=== PATIENT | female | born 1955 | race African-American/Black ===

== ENCOUNTER 2019-12-26 23:10 | Inpatient (IN) | payer BC, MEDICARE ==
[~2019-12-26] VITALS: Ht 175.3 cm; Wt 110.7 kg
[2019-12-26] MEDS ORDERED: METO-411 PO (23:11)
[2019-12-26] MEDS ORDERED: BENA1TAB18 PO (23:12)
[2019-12-26] MEDS ORDERED: AMLO10TA80 PO (23:12)
[2019-12-26] MEDS ORDERED: ATOR10TA69 PO (23:13)
[2019-12-26] MEDS ORDERED: METF-414 PO (23:14)
[2019-12-26] MEDS ORDERED: INSU100I13 SQ (23:16)
[2019-12-26] MEDS ORDERED: SODIUM CHLORIDE 0.9% 1,000 ML IV ONE (23:53)
[2019-12-27 00:50] LABS: HEMATOCRIT. 42.6 % (36.0-48.0); HEMOGLOBIN. 14.2 g/dL (12.0-16.0); MEAN CORPUSCULAR HEMOGLOBIN 30.7 pg (28.0-32.0); MEAN CORPUSCULAR VOLUME 92.4 fL (81.0-99.0); MEAN PLATELET VOLUME 9.8 fl (7.4-10.4); PLATELET 260 x1000/uL (130-400); RED BLOOD CELL COUNT 4.61 mill/uL (4.2-5.4); RED CELL DISTRIBUTION WIDTH 13.4 % (11.6-14.6)
[2019-12-27 00:57] LABS: CHLORIDE 91 mEq/L (98-107)
[2019-12-27] MEDS ORDERED: INSULIN REGULAR (HUMULIN R) 300UNITS/3ML SUBCUT NR (01:30)
[2019-12-27 01:58] LABS: PLATELET ESTIMATE NORMAL
[2019-12-27] MEDS ORDERED: AZITHROMYCIN 500 MG in DEXT 5% WATER 250 ML IV NR (02:00)
[2019-12-27] MEDS ORDERED: CEFTRIAXONE 1 G PREMIX 50 ML IV NR (03:00)
[2019-12-27 03:50] VITALS: BP 123/70
[2019-12-27 04:00] VITALS: BP 123/70
[2019-12-27] MEDS ORDERED: DEXTROSE 50% WATER 50ML SYRINGE IV PRN (05:45)
[2019-12-27] MEDS: BLOOD SUGAR DIAGNOSTIC STRIP TEST SCH ×4 (06:48→21:00)
[2019-12-27] MEDS ORDERED: INSULIN LISPRO 100 UNITS/ML SUBCUT ONE (07:00)
[2019-12-27] MEDS: INSULIN LISPRO 100 UNITS/ML SUBCUT SCH ×6 (07:15→23:25)
[2019-12-27] MEDS ORDERED: METFORMIN HCL 500MG TABLET PO SCH (07:15)
[2019-12-27] MEDS ORDERED: METOPROLOL TARTRATE 50MG TABLET PO SCH ×2 (09:00→21:00)
[2019-12-27] MEDS ORDERED: AMLODIPINE 10MG TABLET PO SCH (09:00)
[2019-12-27] MEDS: BENAZEPRIL 10MG TABLET PO SCH ×2 (09:56→21:00)
[2019-12-27] MEDS: INSULIN GLARGINE UD 100 UNITS/ML SYR SUBCUT SCH ×2 (09:58→23:27)
[2019-12-27] MEDS ORDERED: CEFTRIAXONE 1 G PREMIX 50 ML IV SCH (10:00)
[2019-12-27 12:55] LABS: HEMATOCRIT. 39.1 % (36.0-48.0); MEAN CORPUSCULAR HEMOGLOBIN 30.4 pg (28.0-32.0); MEAN CORPUSCULAR VOLUME 91.6 fL (81.0-99.0); PLATELET 267 x1000/uL (130-400); RED BLOOD CELL COUNT 4.27 mill/uL (4.2-5.4); RED CELL DISTRIBUTION WIDTH 12.9 % (11.6-14.6)
[2019-12-27 13:02] LABS: CHLORIDE 93 mEq/L (98-107)
[2019-12-27] MEDS: ASPIRIN 81MG TABLET PO SCH (13:32)
[2019-12-27] MEDS: SODIUM CHLORIDE 0.9% 1,000 ML IV SCH (14:00)
[2019-12-27 14:39] LABS: PLATELET ESTIMATE NORMAL
[2019-12-27] MEDS ORDERED: VANCOMYCIN 2,000 MG in DEXT 5% WATER 500 ML IV NR (16:00)
[2019-12-27] MEDS: PIPERACILLIN/TAZOBACTAM 3.375 G in DEXT 5% WATER 100 ML IV SCH ×2 (18:07→22:54)
[2019-12-27] MEDS: METFORMIN HCL 500MG TABLET PO SCH (18:21)
[2019-12-27] MEDS: LINEZOLID 600 MG PREMIX 300 ML IV SCH (18:22)
[2019-12-27] MEDS: ENOXAPARIN 30MG/0.3ML SYR SUBCUT SCH (18:22)
[2019-12-27 20:00] VITALS: BP 92/60
[2019-12-27] MEDS ORDERED: CEFTRIAXONE 1,000 MG in DEXTROSE 5% WATER 50 ML IV SCH (21:00)
[2019-12-27] MEDS ORDERED: INSULIN GLARGINE UD 100 UNITS/ML SYR SUBCUT SCH (22:00)
[2019-12-27] MEDS: ATORVASTATIN CALCIUM 10MG TABLET PO SCH (22:20)
[2019-12-28] VITALS (42 sets, daily range): BP systolic 76–144; BP diastolic 35–122
[2019-12-28] MEDS: PIPERACILLIN/TAZOBACTAM 3.375 G in DEXT 5% WATER 100 ML IV SCH ×4 (04:37→20:45)
[2019-12-28] MEDS: SODIUM CHLORIDE 0.9% 1,000 ML IV SCH ×2 (04:37→13:36)
[2019-12-28] MEDS: LINEZOLID 600 MG PREMIX 300 ML IV SCH (06:11)
[2019-12-28] MEDS: ENOXAPARIN 30MG/0.3ML SYR SUBCUT SCH (06:12)
[2019-12-28] MEDS: INSULIN LISPRO 100 UNITS/ML SUBCUT SCH ×7 (06:34→20:47)
[2019-12-28] MEDS: METFORMIN HCL 500MG TABLET PO SCH (06:39)
[2019-12-28] MEDS: BLOOD SUGAR DIAGNOSTIC STRIP TEST SCH ×4 (06:39→20:36)
[2019-12-28] MEDS ORDERED: POTASSIUM CHLORIDE 20MEQ TABLET SR PO NR (08:15)
[2019-12-28 08:28] LABS: HEMATOCRIT. 41.6 % (36.0-48.0); HEMOGLOBIN. 13.6 g/dL (12.0-16.0); MEAN CORPUSCULAR HEMOGLOBIN 29.8 pg (28.0-32.0); MEAN CORPUSCULAR VOLUME 91.1 fL (81.0-99.0); MEAN PLATELET VOLUME 10.3 fl (7.4-10.4); PLATELET 259 x1000/uL (130-400); RED BLOOD CELL COUNT 4.56 mill/uL (4.2-5.4); RED CELL DISTRIBUTION WIDTH 12.9 % (11.6-14.6)
[2019-12-28 08:41] LABS: PHOSPHORUS 2.8 mg/dL (2.5-4.9)
[2019-12-28] MEDS ORDERED: SODIUM CHLORIDE 0.9% 1,000 ML IV ONE (09:00)
[2019-12-28] MEDS: MIDODRINE HCL 5MG TABLET PO SCH ×3 (09:19→18:20)
[2019-12-28] MEDS: ASPIRIN 81MG TABLET PO SCH (09:21)
[2019-12-28] MEDS ORDERED: MAGNESIUM 2 G PREMIX 50 ML IV SCH (10:00)
[2019-12-28 10:44] LABS: BG BASE EXCESS -3.3 mmol/L (-2.0-2.0); BG CARBOXYHEMOGLOBIN 0.8 % (0.5-1.5); BG DEOXYHEMOGLOBIN 1.7 % (0.0-5.0); BG FRACTION INSPIRED OXYGEN 21; BG HCO3 ACT 18.7 mmol/L (22.0-26.0); BG METHEMOGLOBIN 0.1 % (0.0-1.5); BG OXYGEN SATURATION 98.3 % (92.0-98.5); BG OXYHEMOGLOBIN 97.4 % (94.0-97.0); BG PCO2 26.1 mmHg (35.0-45.0); BG PH 7.472 (7.350-7.450); BG PO2 104.3 mmHg (75.0-100.0); BG SAMPLE SITE RIGHT RADIAL; BG TOTAL HEMOGLOBIN 14.2 g/dL (12.0-18.0); BG VENT MODE ROOM AIR
[2019-12-28] MEDS: INSULIN GLARGINE UD 100 UNITS/ML SYR SUBCUT SCH ×2 (10:47→21:05)
[2019-12-28] MEDS ORDERED: PHENYLEPHRINE 10 MG in DEXT 5% WATER 249 ML IV PRN (11:30)
[2019-12-28 12:08] LABS: PLATELET ESTIMATE NORMAL
[2019-12-28] MEDS ORDERED: PHENYLEPHRINE IV PRN (14:24)
[2019-12-28] MEDS ORDERED: WATER IV PRN (14:24)
[2019-12-28] MEDS ORDERED: DEXT 5% IV PRN (14:24)
[2019-12-28] MEDS ORDERED: PHENYLEPHRINE 20 MG in DEXTROSE 5% WATER 250 ML IV PRN (14:30)
[2019-12-28] MEDS ORDERED: VANCOMYCIN 1250MG in DEXTROSE 5% WATER 250ML IV SCH (16:00)
[2019-12-28] MEDS: HYDROCODONE/ACETAMINOPHEN 5/325MG TABLET PO PRN (18:20)
[2019-12-28 19:16] LABS: CLARITY URINE TURBID (CLEAR); COLOR URINE DARK YELLOW (YELLOW); KETONES URINE TRACE (NEGATIVE); LEUKOCYTE ESTERASE URINE 3+ (NEGATIVE); NITRITE URINE NEGATIVE (NEGATIVE); OCCULT BLOOD URINE 2+ (NEGATIVE); PROTEIN URINE 2+ (NEGATIVE); SPECIFIC GRAVITY URINE 1.027 (1.005-1.030)
[2019-12-28 19:23] LABS: *AMPHETAMINES SCREEN URINE NEGATIVE (NEGATIVE); *BARBITURATES SCREEN URINE NEGATIVE (NEGATIVE); *BENZODIAZEPINES SCREEN URINE NEGATIVE (NEGATIVE); *COCAINE SCREEN URINE NEGATIVE (NEGATIVE)
[2019-12-28 19:24] LABS: CANNABINOID URINE SCREEN NEGATIVE (NEGATIVE); METHADONE URINE SCREEN NEGATIVE (NEGATIVE); OPIATES URINE SCREEN NEGATIVE (NEGATIVE); PHENCYCLIDINE URINE SCREEN NEGATIVE (NEGATIVE)
[2019-12-28 19:45] LABS: SODIUM URINE RANDOM 43 mEq/L
[2019-12-28] MEDS ORDERED: MORPHINE SULFATE 2 MG/ML CPJ (NOT FOR IM USE) IV PRN (20:15)
[2019-12-28] MEDS: ATORVASTATIN CALCIUM 10MG TABLET PO SCH (20:46)
[2019-12-28] MEDS: CEFTRIAXONE 1,000 MG in DEXTROSE 5% WATER 50 ML IV SCH (22:54)
[2019-12-29] VITALS (61 sets, daily range): BP systolic 82–150; BP diastolic 28–86
[2019-12-29] MEDS: SODIUM CHLORIDE 0.9% 1,000 ML IV SCH ×4 (00:45→22:46)
[2019-12-29] MEDS: ONDANSETRON HCL 4MG/2ML INJ IV PRN ×2 (02:58→18:42)
[2019-12-29 05:29] LABS: BASOPHILS % 0.3 % (0.0-2.0); HEMATOCRIT. 39.3 % (36.0-48.0); LYMPHOCYTES % 7.4 % (20.0-50.0); MEAN CORPUSCULAR HEMOGLOBIN 30.1 pg (28.0-32.0); MEAN CORPUSCULAR VOLUME 90.8 fL (81.0-99.0); MEAN PLATELET VOLUME 9.8 fl (7.4-10.4); MONOCYTES % 7.3 % (2.0-8.0); PLATELET 295 x1000/uL (130-400); RED BLOOD CELL COUNT 4.33 mill/uL (4.2-5.4); RED CELL DISTRIBUTION WIDTH 13.3 % (11.6-14.6)
[2019-12-29 05:37] LABS: PHOSPHORUS 2.8 mg/dL (2.5-4.9)
[2019-12-29] MEDS: BLOOD SUGAR DIAGNOSTIC STRIP TEST SCH ×4 (06:24→20:10)
[2019-12-29] MEDS: INSULIN LISPRO 100 UNITS/ML SUBCUT SCH ×7 (06:25→20:10)
[2019-12-29] MEDS: ASPIRIN 81MG TABLET PO SCH (08:35)
[2019-12-29] MEDS: MIDODRINE HCL 5MG TABLET PO SCH ×3 (08:36→17:10)
[2019-12-29] MEDS ORDERED: POTASSIUM CHLORIDE 20MEQ TABLET SR PO NR (08:45)
[2019-12-29] MEDS ORDERED: ENOXAPARIN 40MG/0.4ML SYR SUBCUT SCH (09:00)
[2019-12-29] MEDS ORDERED: ENOXAPARIN 80MG/0.8ML SYR SUBCUT NR (09:00)
[2019-12-29] MEDS: INSULIN GLARGINE UD 100 UNITS/ML SYR SUBCUT SCH ×2 (09:52→22:00)
[2019-12-29] MEDS: DIPHENHYDRAMINE 50MG/ML VIAL IV PRN ×2 (09:52→17:06)
[2019-12-29 10:36] LABS: CREATINE KINASE 25 IU/L (26-192)
[2019-12-29] MEDS: CALAMINE LOTION 120ML TOP SCH ×2 (13:04→22:47)
[2019-12-29] MEDS: HYDROCODONE/ACETAMINOPHEN 5/325MG TABLET PO PRN (18:26)
[2019-12-29] MEDS: ATORVASTATIN CALCIUM 10MG TABLET PO SCH (20:11)
[2019-12-29] MEDS: CEFTRIAXONE 1,000 MG in DEXTROSE 5% WATER 50 ML IV SCH (22:46)
[2019-12-30 04:00] VITALS: BP 131/71
[2019-12-30] MEDS: SODIUM CHLORIDE 0.9% 1,000 ML IV SCH (05:13)
[2019-12-30] MEDS: CALAMINE LOTION 120ML TOP SCH ×3 (05:13→21:18)
[2019-12-30] MEDS: BLOOD SUGAR DIAGNOSTIC STRIP TEST SCH ×4 (06:50→20:34)
[2019-12-30] MEDS: INSULIN LISPRO 100 UNITS/ML SUBCUT SCH ×5 (06:50→20:33)
[2019-12-30 08:00] VITALS: BP 121/64
[2019-12-30] MEDS: ENOXAPARIN 120MG/0.8ML SYR SUBCUT SCH (08:38)
[2019-12-30] MEDS: MIDODRINE HCL 5MG TABLET PO SCH (08:39)
[2019-12-30] MEDS: HYDROCODONE/ACETAMINOPHEN 5/325MG TABLET PO PRN ×2 (08:40→19:49)
[2019-12-30 08:42] LABS: BASOPHILS % 0.5 % (0.0-2.0); EOSINOPHILS % 0.9 % (0.0-5.0); HEMATOCRIT. 34.6 % (36.0-48.0); HEMOGLOBIN. 11.5 g/dL (12.0-16.0); LYMPHOCYTES % 11.4 % (20.0-50.0); MEAN CORPUSCULAR HEMOGLOBIN 30.1 pg (28.0-32.0); MEAN CORPUSCULAR VOLUME 90.9 fL (81.0-99.0); MEAN PLATELET VOLUME 9.9 fl (7.4-10.4); MONOCYTES % 10.2 % (2.0-8.0); PLATELET 293 x1000/uL (130-400); RED BLOOD CELL COUNT 3.81 mill/uL (4.2-5.4); RED CELL DISTRIBUTION WIDTH 13.9 % (11.6-14.6)
[2019-12-30 09:06] LABS: PHOSPHORUS 4.3 mg/dL (2.5-4.9)
[2019-12-30] MEDS ORDERED: POTASSIUM CHLORIDE 20MEQ TABLET SR PO NR (09:30)
[2019-12-30 12:00] VITALS: BP 115/55
[2019-12-30 15:54] VITALS: BP 136/72
[2019-12-30] MEDS: ONDANSETRON HCL 4MG/2ML INJ IV PRN (19:48)
[2019-12-30 20:00] VITALS: BP 103/55
[2019-12-30] MEDS: ATORVASTATIN CALCIUM 10MG TABLET PO SCH (20:33)
[2019-12-30] MEDS: CEFTRIAXONE 1,000 MG in DEXTROSE 5% WATER 50 ML IV SCH (21:17)
[2019-12-31] VITALS (7 sets, daily range): BP systolic 115–156; BP diastolic 53–65
[2019-12-31] MEDS: CALAMINE LOTION 120ML TOP SCH ×3 (06:00→21:24)
[2019-12-31] MEDS: BLOOD SUGAR DIAGNOSTIC STRIP TEST SCH ×4 (06:39→20:50)
[2019-12-31] MEDS: INSULIN LISPRO 100 UNITS/ML SUBCUT SCH ×4 (06:39→21:26)
[2019-12-31 07:37] LABS: BASOPHILS % 0.3 % (0.0-2.0); EOSINOPHILS % 0.9 % (0.0-5.0); HEMATOCRIT. 36.2 % (36.0-48.0); HEMOGLOBIN. 11.8 g/dL (12.0-16.0); LYMPHOCYTES % 8.4 % (20.0-50.0); MEAN CORPUSCULAR HEMOGLOBIN 29.6 pg (28.0-32.0); MEAN CORPUSCULAR VOLUME 91.3 fL (81.0-99.0); MEAN PLATELET VOLUME 9.4 fl (7.4-10.4); MONOCYTES % 10.7 % (2.0-8.0); NEUTROPHILS % 79.7 % (40.0-76.0); PLATELET 320 x1000/uL (130-400); RED BLOOD CELL COUNT 3.97 mill/uL (4.2-5.4)
[2019-12-31] MEDS: ENOXAPARIN 120MG/0.8ML SYR SUBCUT SCH (09:27)
[2019-12-31] MEDS: HYDROCODONE/ACETAMINOPHEN 5/325MG TABLET PO PRN ×2 (12:07→17:16)
[2019-12-31] MEDS: CEFTRIAXONE 1,000 MG in DEXTROSE 5% WATER 50 ML IV SCH (21:24)
[2019-12-31] MEDS: ATORVASTATIN CALCIUM 10MG TABLET PO SCH (21:24)
[2020-01-01] VITALS: BP 159/63
[2020-01-01] MEDS: HYDROCODONE/ACETAMINOPHEN 5/325MG TABLET PO PRN ×3 (00:08→20:05)
[2020-01-01 04:00] VITALS: BP 136/66
[2020-01-01] MEDS: CALAMINE LOTION 120ML TOP SCH ×3 (05:31→22:22)
[2020-01-01] MEDS: BLOOD SUGAR DIAGNOSTIC STRIP TEST SCH ×4 (06:56→20:19)
[2020-01-01] MEDS: INSULIN LISPRO 100 UNITS/ML SUBCUT SCH ×4 (06:57→20:20)
[2020-01-01 08:00] VITALS: BP 135/70
[2020-01-01] MEDS: ENOXAPARIN 120MG/0.8ML SYR SUBCUT SCH (08:19)
[2020-01-01 10:26] LABS: BASOPHILS % 0.5 % (0.0-2.0); EOSINOPHILS % 0.9 % (0.0-5.0); HEMOGLOBIN. 12.4 g/dL (12.0-16.0); LYMPHOCYTES % 7.9 % (20.0-50.0); MEAN CORPUSCULAR HEMOGLOBIN 30.2 pg (28.0-32.0); MEAN PLATELET VOLUME 8.8 fl (7.4-10.4); MONOCYTES % 7.4 % (2.0-8.0); NEUTROPHILS % 83.3 % (40.0-76.0); PLATELET 368 x1000/uL (130-400); RED BLOOD CELL COUNT 4.11 mill/uL (4.2-5.4); RED CELL DISTRIBUTION WIDTH 13.9 % (11.6-14.6)
[2020-01-01 10:54] LABS: PHOSPHORUS 5.7 mg/dL (2.5-4.9)
[2020-01-01 12:54] VITALS: BP 136/68
[2020-01-01 16:00] VITALS: BP 126/52
[2020-01-01 20:00] VITALS: BP 156/85
[2020-01-01] MEDS: ATORVASTATIN CALCIUM 10MG TABLET PO SCH (20:08)
[2020-01-01] MEDS: CEFTRIAXONE 1,000 MG in DEXTROSE 5% WATER 50 ML IV SCH (22:21)
[2020-01-02] VITALS: BP 137/61
[2020-01-02 04:00] VITALS: BP 137/68
[2020-01-02] MEDS: CALAMINE LOTION 120ML TOP SCH ×2 (06:17→13:36)
[2020-01-02] MEDS: BLOOD SUGAR DIAGNOSTIC STRIP TEST SCH ×2 (06:21→12:10)
[2020-01-02] MEDS: INSULIN LISPRO 100 UNITS/ML SUBCUT SCH ×2 (06:21→13:27)
[2020-01-02 08:00] VITALS: BP 163/87
[2020-01-02] MEDS: ENOXAPARIN 120MG/0.8ML SYR SUBCUT SCH (09:55)
[2020-01-02 11:11] LABS: BASOPHILS % 0.6 % (0.0-2.0); EOSINOPHILS % 0.8 % (0.0-5.0); HEMATOCRIT. 37.3 % (36.0-48.0); HEMOGLOBIN. 12.6 g/dL (12.0-16.0); LYMPHOCYTES % 9.2 % (20.0-50.0); MEAN CORPUSCULAR HEMOGLOBIN 30.2 pg (28.0-32.0); MEAN CORPUSCULAR VOLUME 89.6 fL (81.0-99.0); MONOCYTES % 8.4 % (2.0-8.0); PLATELET 447 x1000/uL (130-400); RED BLOOD CELL COUNT 4.16 mill/uL (4.2-5.4); RED CELL DISTRIBUTION WIDTH 13.8 % (11.6-14.6)
[2020-01-02] MEDS ORDERED: POTASSIUM CHLORIDE 20MEQ TABLET SR PO SCH (11:45)
[2020-01-02 12:00] VITALS: BP 110/71
[2020-01-02 14:03] VITALS: BP 110/71
== END 2020-01-02 15:25 | disposition home or self-care (01) | DRG 720 ==
LOC: ER 23:10 → 5WST 12-27 02:43 → EDBEDREQTM 12-27 02:45 → EDBEDREQ 12-27 02:45 → ENRESERV 12-27 03:10 → MICUNO 12-28 11:22 → 8WST 12-29 20:34
PROVIDERS: ADMIT Internal Medicine; ATTEND Internal Medicine
DX: A41.51 Sepsis due to Escherichia coli [E. coli] (principal); R65.21 Severe sepsis with septic shock; N39.0 Urinary tract infection, site not specified; E87.6 Hypokalemia; E87.8 Other disorders of electrolyte and fluid balance, not elsewhere classified; E87.1 Hypo-osmolality and hyponatremia; E43 Unspecified severe protein-calorie malnutrition; M94.0 Chondrocostal junction syndrome [Tietze]; E66.9 Obesity, unspecified; E11.10 Type 2 diabetes mellitus with ketoacidosis without coma; E78.5 Hyperlipidemia, unspecified; E83.42 Hypomagnesemia; N17.0 Acute kidney failure with tubular necrosis; E78.00 Pure hypercholesterolemia, unspecified; M19.90 Unspecified osteoarthritis, unspecified site; J18.9 Pneumonia, unspecified organism; I48.91 Unspecified atrial fibrillation; R06.09 Other forms of dyspnea; N12 Tubulo-interstitial nephritis, not specified as acute or chronic; D25.9 Leiomyoma of uterus, unspecified; I10 Essential (primary) hypertension; Z91.14 Patient's other noncompliance with medication regimen; Z91.19 Patient's noncompliance with other medical treatment and regimen; Z82.49 Family history of ischemic heart disease and other diseases of the circulatory system; Z83.3 Family history of diabetes mellitus
CPT/HCPCS: 36415; 36600; 71045; 74176; 76770; 80048; 80053; 80305; 81003; 82375; 82533; 82550; 82805; 82962; 83036; 83605; 83735; 83880; 83935; 84100; 84145; 84300; 84443; 84484; 85025; 85379; 87077; 87106; 87186; 93005; 93306; 99285; J0456; J0696; J1200; J1650; J1815; J2020; J2270; J2405; J2543; J3370; J3475; J7030; J7060

== ENCOUNTER 2020-02-18 22:47 | Inpatient (IN) | payer MEDICARE ==
[~2020-02-18] VITALS: Ht 172.7 cm; Wt 105.7 kg
[~2020-02-18 22:47] MED LIST: AMLO10TA80 PO; ATOR10TA69 PO; INSU100I13 SQ
[2020-02-18] MEDS ORDERED: ONDANSETRON HCL 4MG/2ML INJ IV STA (23:39)
[2020-02-18 23:55] LABS: BASOPHILS % 0.4 % (0.0-2.0); EOSINOPHILS % 0.1 % (0.0-5.0); HEMATOCRIT. 36.2 % (36.0-48.0); HEMOGLOBIN. 11.9 g/dL (12.0-16.0); LYMPHOCYTES % 8.8 % (20.0-50.0); MEAN CORPUSCULAR HEMOGLOBIN 29.4 pg (28.0-32.0); MEAN CORPUSCULAR VOLUME 89.1 fL (81.0-99.0); MEAN PLATELET VOLUME 9.7 fl (7.4-10.4); MONOCYTES % 6.5 % (2.0-8.0); NEUTROPHILS % 84.2 % (40.0-76.0); PLATELET 293 x1000/uL (130-400); RED BLOOD CELL COUNT 4.06 mill/uL (4.2-5.4); RED CELL DISTRIBUTION WIDTH 12.8 % (11.6-14.6)
[2020-02-18 23:58] LABS: CHLORIDE 95 mEq/L (98-107)
[2020-02-19] VITALS (26 sets, daily range): BP systolic 88–129; BP diastolic 30–94
[2020-02-19] MEDS ORDERED: DILTIAZEM HCL 5MG/ML 5ML VIAL IV ONE
[2020-02-19 00:01] LABS: INR 1.1; PROTHROMBIN TIME 11.4 sec (9.6-11.0)
[2020-02-19 00:22] LABS: PARTIAL THROMBOPLASTIN TIME 29.6 sec (23.4-31.0)
[2020-02-19] MEDS ORDERED: SODIUM CHLORIDE 0.9% 1,000 ML IV NR (00:30)
[2020-02-19] MEDS ORDERED: LEVOFLOXACIN 500MG PREMIX 100 ML IV ONE (00:30)
[2020-02-19] MEDS ORDERED: DILTIAZEM HCL 125 MG in DEXT 5% WATER 100 ML IV ONE (01:00)
[2020-02-19] MEDS ORDERED: INSULIN LISPRO 100 UNITS/ML SUBCUT ONE (01:45)
[2020-02-19] MEDS: DILTIAZEM HCL 125 MG in DEXT 5% WATER 100 ML IV PRN ×2 (02:11→11:42)
[2020-02-19 02:32] LABS: CLARITY URINE TURBID (CLEAR); COLOR URINE YELLOW (YELLOW); KETONES URINE TRACE (NEGATIVE); LEUKOCYTE ESTERASE URINE 2+ (NEGATIVE); NITRITE URINE NEGATIVE (NEGATIVE); OCCULT BLOOD URINE 2+ (NEGATIVE); PROTEIN URINE 2+ (NEGATIVE); SPECIFIC GRAVITY URINE 1.024 (1.005-1.030)
[2020-02-19] MEDS: MORPHINE SULFATE 2 MG/ML CPJ (NOT FOR IM USE) IV PRN ×2 (04:15→09:28)
[2020-02-19] MEDS ORDERED: DEXTROSE 50% WATER 50ML SYRINGE IV PRN (12:15)
[2020-02-19] MEDS ORDERED: CEFTRIAXONE 1 G PREMIX 50 ML IV SCH (12:15)
[2020-02-19] MEDS: FUROSEMIDE 40MG/4ML VIAL IVP SCH ×2 (13:25→18:13)
[2020-02-19] MEDS: ENOXAPARIN 120MG/0.8ML SYR SUBCUT SCH (13:29)
[2020-02-19] MEDS ORDERED: INSULIN GLARGINE UD 100 UNITS/ML SYR SUBCUT NR (13:30)
[2020-02-19] MEDS ORDERED: CEFTRIAXONE 1,000 MG in DEXTROSE 5% WATER 50 ML IV SCH (14:00)
[2020-02-19] MEDS: CEFEPIME 1,000 MG in DEXTROSE 5% WATER 50 ML IV SCH (16:11)
[2020-02-19] MEDS: BLOOD SUGAR DIAGNOSTIC STRIP TEST SCH ×2 (16:30→21:30)
[2020-02-19] MEDS ORDERED: DILTIAZEM HCL 120MG CAPSULE CD 24HR PO SCH (16:30)
[2020-02-19] MEDS: DILTIAZEM HCL 60MG TABLET PO SCH (18:13)
[2020-02-19] MEDS: INSULIN LISPRO 100 UNITS/ML SUBCUT SCH ×2 (18:30→21:50)
[2020-02-19] MEDS: ACETAMINOPHEN 325MG TABLET PO PRN (18:53)
[2020-02-19 21:11] LABS: INR 1.1; PROTHROMBIN TIME 11.6 sec (9.6-11.0)
[2020-02-19] MEDS: INSULIN GLARGINE UD 100 UNITS/ML SYR SUBCUT SCH (22:43)
[2020-02-20] VITALS (31 sets, daily range): BP systolic 93–126; BP diastolic 45–72
[2020-02-20] MEDS: ENOXAPARIN 120MG/0.8ML SYR SUBCUT SCH ×2 (00:31→13:10)
[2020-02-20] MEDS: DILTIAZEM HCL 60MG TABLET PO SCH ×3 (00:32→13:10)
[2020-02-20] MEDS: CEFEPIME 1,000 MG in DEXTROSE 5% WATER 50 ML IV SCH ×2 (04:27→16:16)
[2020-02-20 05:52] LABS: BASOPHILS % 0.4 % (0.0-2.0); EOSINOPHILS % 0.7 % (0.0-5.0); HEMATOCRIT. 34.2 % (36.0-48.0); HEMOGLOBIN. 11.4 g/dL (12.0-16.0); LYMPHOCYTES % 14.9 % (20.0-50.0); MEAN CORPUSCULAR HEMOGLOBIN 29.4 pg (28.0-32.0); MEAN CORPUSCULAR VOLUME 88.1 fL (81.0-99.0); MEAN PLATELET VOLUME 9.8 fl (7.4-10.4); MONOCYTES % 6.9 % (2.0-8.0); NEUTROPHILS % 77.1 % (40.0-76.0); PLATELET 314 x1000/uL (130-400); RED BLOOD CELL COUNT 3.89 mill/uL (4.2-5.4); RED CELL DISTRIBUTION WIDTH 13.3 % (11.6-14.6)
[2020-02-20] MEDS: INSULIN LISPRO 100 UNITS/ML SUBCUT SCH ×4 (06:40→20:23)
[2020-02-20] MEDS: BLOOD SUGAR DIAGNOSTIC STRIP TEST SCH ×4 (06:41→20:21)
[2020-02-20] MEDS: FUROSEMIDE 40MG/4ML VIAL IVP SCH ×2 (06:55→18:24)
[2020-02-20] MEDS ORDERED: POTASSIUM CHLORIDE 20MEQ TABLET SR PO SCH (09:00)
[2020-02-20] MEDS: INSULIN GLARGINE UD 100 UNITS/ML SYR SUBCUT SCH ×2 (09:51→21:12)
[2020-02-20] MEDS: ONDANSETRON HCL 4MG/2ML INJ IV PRN (11:19)
[2020-02-20] MEDS: MORPHINE SULFATE 2 MG/ML CPJ (NOT FOR IM USE) IV PRN (11:26)
[2020-02-20] MEDS: AMIODARONE HCL 200 MG TABLET PO SCH (18:24)
[2020-02-20] MEDS: METOPROLOL TARTRATE 25MG TABLET PO SCH (20:40)
[2020-02-21] VITALS: BP 109/56
[2020-02-21] MEDS: CEFAZOLIN 1000MG PREMIX 50 ML IV SCH ×4 (00:26→21:40)
[2020-02-21] MEDS: ONDANSETRON HCL 4MG/2ML INJ IV PRN (00:30)
[2020-02-21] MEDS: MORPHINE SULFATE 2 MG/ML CPJ (NOT FOR IM USE) IV PRN ×2 (00:45→17:05)
[2020-02-21] MEDS: ENOXAPARIN 120MG/0.8ML SYR SUBCUT SCH ×3 (00:49→23:31)
[2020-02-21 04:00] VITALS: BP 108/55
[2020-02-21] MEDS: CEFEPIME 1,000 MG in DEXTROSE 5% WATER 50 ML IV SCH (04:56)
[2020-02-21 07:18] LABS: BASOPHILS % 0.3 % (0.0-2.0); EOSINOPHILS % 0.9 % (0.0-5.0); HEMATOCRIT. 32.3 % (36.0-48.0); HEMOGLOBIN. 10.9 g/dL (12.0-16.0); MEAN CORPUSCULAR HEMOGLOBIN 29.6 pg (28.0-32.0); MEAN CORPUSCULAR VOLUME 87.9 fL (81.0-99.0); MEAN PLATELET VOLUME 9.1 fl (7.4-10.4); MONOCYTES % 7.8 % (2.0-8.0); PLATELET 401 x1000/uL (130-400); RED BLOOD CELL COUNT 3.68 mill/uL (4.2-5.4); RED CELL DISTRIBUTION WIDTH 13.8 % (11.6-14.6)
[2020-02-21] MEDS: FUROSEMIDE 40MG/4ML VIAL IVP SCH ×2 (07:43→17:14)
[2020-02-21] MEDS: BLOOD SUGAR DIAGNOSTIC STRIP TEST SCH ×4 (07:53→20:30)
[2020-02-21 08:00] VITALS: BP 113/63
[2020-02-21] MEDS: INSULIN LISPRO 100 UNITS/ML SUBCUT SCH ×4 (08:00→20:30)
[2020-02-21] MEDS: AMIODARONE HCL 200 MG TABLET PO SCH ×3 (08:19→17:07)
[2020-02-21] MEDS: METOPROLOL TARTRATE 25MG TABLET PO SCH ×2 (08:19→20:31)
[2020-02-21] MEDS ORDERED: POTASSIUM CHLORIDE 20MEQ TABLET SR PO SCH (11:30)
[2020-02-21 12:00] VITALS: BP 107/63
[2020-02-21] MEDS: INSULIN GLARGINE UD 100 UNITS/ML SYR SUBCUT SCH ×2 (12:00→21:41)
[2020-02-21] MEDS ORDERED: LEVO750T46 PO (13:21)
[2020-02-21] MEDS ORDERED: FURO-151 MT (14:12)
[2020-02-21] MEDS ORDERED: POTA-79 MT (14:12)
[2020-02-21] MEDS ORDERED: LANTUSUD SUBCUT (14:12)
[2020-02-21 20:00] VITALS: BP 102/52
[2020-02-22] VITALS: BP 101/52
[2020-02-22 04:00] VITALS: BP 112/61
[2020-02-22] MEDS: BLOOD SUGAR DIAGNOSTIC STRIP TEST SCH ×2 (05:55→11:32)
[2020-02-22] MEDS: INSULIN LISPRO 100 UNITS/ML SUBCUT SCH ×2 (06:26→11:38)
[2020-02-22] MEDS: FUROSEMIDE 40MG/4ML VIAL IVP SCH (06:27)
[2020-02-22] MEDS: AMIODARONE HCL 200 MG TABLET PO SCH (06:27)
[2020-02-22] MEDS: CEFAZOLIN 1000MG PREMIX 50 ML IV SCH ×2 (06:27→14:28)
[2020-02-22 08:00] VITALS: BP 120/63
[2020-02-22] MEDS: METOPROLOL TARTRATE 25MG TABLET PO SCH (08:37)
[2020-02-22] MEDS: ACETAMINOPHEN 325MG TABLET PO PRN (08:50)
[2020-02-22] MEDS: ENOXAPARIN 120MG/0.8ML SYR SUBCUT SCH (11:31)
[2020-02-22] MEDS: INSULIN GLARGINE UD 100 UNITS/ML SYR SUBCUT SCH (11:31)
[2020-02-22 12:00] VITALS: BP 103/62
[2020-02-22] MEDS ORDERED: AMI2 MT (12:13)
[2020-02-22] MEDS ORDERED: METO-385 MT (12:13)
[2020-02-22] MEDS ORDERED: APIX5TAB MT (12:13)
[2020-02-22 14:09] VITALS: BP 103/62
[2020-02-22] MEDS ORDERED: AMIODARONE HCL 200 MG TABLET PO SCH (17:15)
== END 2020-02-22 15:45 | disposition home or self-care (01) | DRG 720 ==
LOC: ER 22:47 → EDBEDREQ 23:43 → MICUSO 02-19 00:46 → EDBEDREQTM 02-19 00:51 → EDBEDREQ 02-19 00:51 → EDBEDREQDT 02-19 00:51 → EDBEDREQSVC 02-19 00:51 → ENRESERV 02-19 10:32 → 5WST 02-20 16:35 → 5EST 02-20 22:33 → 5WST 02-21 15:05
PROVIDERS: ADMIT Internal Medicine; ATTEND Internal Medicine
DX: A41.51 Sepsis due to Escherichia coli [E. coli] (principal); E87.1 Hypo-osmolality and hyponatremia; E87.8 Other disorders of electrolyte and fluid balance, not elsewhere classified; E43 Unspecified severe protein-calorie malnutrition; N39.0 Urinary tract infection, site not specified; E11.65 Type 2 diabetes mellitus with hyperglycemia; E87.6 Hypokalemia; Z20.828 Contact with and (suspected) exposure to other viral communicable diseases; I50.33 Acute on chronic diastolic (congestive) heart failure; N18.2 Chronic kidney disease, stage 2 (mild); E78.5 Hyperlipidemia, unspecified; D21.9 Benign neoplasm of connective and other soft tissue, unspecified; E66.01 Morbid (severe) obesity due to excess calories; I13.0 Hypertensive heart and chronic kidney disease with heart failure and stage 1 through stage 4 chronic kidney disease, or unspecified chronic kidney disease; E11.22 Type 2 diabetes mellitus with diabetic chronic kidney disease; J18.9 Pneumonia, unspecified organism; I48.91 Unspecified atrial fibrillation; Z79.4 Long term (current) use of insulin; Z79.899 Other long term (current) drug therapy; Z68.35 Body mass index [BMI] 35.0-35.9, adult; Z71.3 Dietary counseling and surveillance; N17.0 Acute kidney failure with tubular necrosis
CPT/HCPCS: 36415; 71045; 80048; 80053; 81003; 82962; 83605; 83880; 84145; 84484; 85025; 87077; 87186; 87635; 93005; 93306; 96365; 99291; J0690; J0692; J0696; J1650; J1815; J1940; J1956; J2270; J2405; J3490; J7060

== ENCOUNTER 2021-05-01 19:00 | Inpatient (IN) | payer MEDICARE ==
[~2021-05-01] VITALS: Ht 177.8 cm; Wt 109.8 kg
[~2021-05-01 19:00] MED LIST changes: +AMI2 MT; -AMLO10TA80 PO; +APIX5TAB MT; +FURO-151 MT; +LANTUSUD SUBCUT; +LEVO750T46 PO; +METO-385 MT; +POTA-79 MT
[2021-05-01] MEDS ORDERED: VANCOMYCIN 1 G PREMIX 200 ML IV ONE (22:45)
[2021-05-01] MEDS ORDERED: PIPERACILLIN/TAZ 3.375G PREMIX 50 ML IV ONE (22:45)
[2021-05-02 00:04] LABS: CHLORIDE 104 mEq/L (98-107)
[2021-05-02 00:10] LABS: BASOPHILS % 0.6 % (0.0-2.0); EOSINOPHILS % 1.2 % (0.0-5.0); HEMATOCRIT. 43.9 % (36.0-48.0); HEMOGLOBIN. 14.8 g/dL (12.0-16.0); LYMPHOCYTES % 20.9 % (20.0-50.0); MEAN CORPUSCULAR HEMOGLOBIN 29.9 pg (28.0-32.0); MEAN PLATELET VOLUME 9.2 fl (7.4-10.4); NEUTROPHILS % 72.3 % (40.0-76.0); PLATELET 343 x1000/uL (130-400); RED BLOOD CELL COUNT 4.93 mill/uL (4.2-5.4); RED CELL DISTRIBUTION WIDTH 13.6 % (11.6-14.6)
[2021-05-02] MEDS ORDERED: MORPHINE SULFATE 4 MG/ML CPJ (NOT FOR IM USE) IV ONE (01:15)
[2021-05-02 01:22] LABS: CLARITY URINE CLEAR (CLEAR); COLOR URINE YELLOW (YELLOW); KETONES URINE NEGATIVE (NEGATIVE); LEUKOCYTE ESTERASE URINE TRACE (NEGATIVE); NITRITE URINE NEGATIVE (NEGATIVE); OCCULT BLOOD URINE NEGATIVE (NEGATIVE); PROTEIN URINE NEGATIVE (NEGATIVE); SPECIFIC GRAVITY URINE 1.027 (1.005-1.030); UROBILINOGEN URINE 0.2 E.U./dL (0.2-1.0)
[2021-05-02] MEDS ORDERED: ACETAMINOPHEN 325MG TABLET PO PRN ×2 (02:00)
[2021-05-02] MEDS ORDERED: HYDRALAZINE 20MG/ML VIAL IV PRN (02:00)
[2021-05-02] MEDS ORDERED: PIPERACILLIN/TAZ 3.375G PREMIX 50 ML IV SCH (02:00)
[2021-05-02] MEDS ORDERED: DIPHENHYDRAMINE 50MG/ML VIAL IV PRN (02:00)
[2021-05-02] MEDS ORDERED: DEXTROSE 50% WATER 50ML SYRINGE IV PRN (02:00)
[2021-05-02] MEDS ORDERED: VANCOMYCIN 1 G PREMIX 200 ML IV SCH (02:00)
[2021-05-02] MEDS ORDERED: ONDANSETRON HCL 4MG/2ML INJ IV PRN (02:00)
[2021-05-02] MEDS ORDERED: POTASSIUM CHLORIDE 20MEQ TABLET SR PO NR ×2 (02:00→05:45)
[2021-05-02] MEDS ORDERED: ZOLPIDEM TARTRATE 5MG TABLET PO PRN (02:00)
[2021-05-02] MEDS ORDERED: MAGNESIUM/ALUMINUM HYDROXIDE/SIMETHICONE 30ML UDC PO PRN (02:00)
[2021-05-02] MEDS ORDERED: CLONIDINE 0.1MG TABLET PO PRN (02:00)
[2021-05-02] MEDS ORDERED: VANCOMYCIN 1 G PREMIX 200 ML IV NR (03:15)
[2021-05-02] MEDS: ENOXAPARIN 100MG/ML SYR SUBCUT SCH ×2 (05:02→17:24)
[2021-05-02 05:23] LABS: PROTHROMBIN TIME 10.9 sec (9.6-11.0)
[2021-05-02 05:30] VITALS: BP 145/64
[2021-05-02] MEDS ORDERED: PIPERACILLIN/TAZOBACTAM 3.375G in DEXT 5% WATER 50ML IV SCH (06:00)
[2021-05-02] MEDS: SODIUM CHLORIDE 0.9% INJ 3ML FLUSH IVF SCH ×3 (06:46→22:26)
[2021-05-02] MEDS: BLOOD SUGAR DIAGNOSTIC STRIP TEST SCH ×4 (06:46→21:48)
[2021-05-02 08:00] VITALS: BP 93/64
[2021-05-02] MEDS: INSULIN LISPRO 100 UNITS/ML SUBCUT SCH ×4 (08:45→22:03)
[2021-05-02] MEDS: METOPROLOL TARTRATE 25MG TABLET PO SCH ×2 (08:46→21:00)
[2021-05-02] MEDS: AMIODARONE HCL 200 MG TABLET PO SCH (08:46)
[2021-05-02 12:00] VITALS: BP 126/70
[2021-05-02] MEDS: PIPERACILLIN/TAZOBACTAM 3.375G in DEXT 5% WATER 50ML IV SCH ×2 (13:21→22:01)
[2021-05-02] MEDS ORDERED: INFLUENZA VACCINE 05/PF 0.5 ML SYRINGE IM ONE (15:00)
[2021-05-02 16:00] VITALS: BP 91/44
[2021-05-02] MEDS ORDERED: NALOXONE HCL 0.4MG/ML VIAL IV PRN (17:15)
[2021-05-02] MEDS: HYDROCODONE/ACETAMINOPHEN 10/325MG TABLET PO PRN (17:26)
[2021-05-02 20:00] VITALS: BP 109/64
[2021-05-02] MEDS ORDERED: INSULIN GLARGINE UD 100 UNITS/ML SYR SUBCUT SCH (22:00)
[2021-05-02] MEDS ORDERED: VANCOMYCIN 1250MG in DEXTROSE 5% WATER 250ML IV SCH (22:00)
[2021-05-02] MEDS: INSULIN GLARGINE UD 100 UNITS/ML SYR SUBCUT SCH (22:03)
[2021-05-03] VITALS: BP 122/78
[2021-05-03] MEDS: ENOXAPARIN 100MG/ML SYR SUBCUT SCH ×2 (03:10→15:05)
[2021-05-03] MEDS: HYDROCODONE/ACETAMINOPHEN 10/325MG TABLET PO PRN ×4 (03:15→22:00)
[2021-05-03 04:00] VITALS: BP 115/60
[2021-05-03] MEDS: PIPERACILLIN/TAZOBACTAM 3.375G in DEXT 5% WATER 50ML IV SCH ×2 (06:23→15:03)
[2021-05-03] MEDS: SODIUM CHLORIDE 0.9% INJ 3ML FLUSH IVF SCH ×3 (06:24→21:55)
[2021-05-03] MEDS: BLOOD SUGAR DIAGNOSTIC STRIP TEST SCH ×4 (06:24→21:03)
[2021-05-03 07:19] LABS: BASOPHILS % 0.4 % (0.0-2.0); EOSINOPHILS % 2.6 % (0.0-5.0); HEMATOCRIT. 36.2 % (36.0-48.0); HEMOGLOBIN. 12.1 g/dL (12.0-16.0); LYMPHOCYTES % 24.4 % (20.0-50.0); MEAN CORPUSCULAR HEMOGLOBIN 30.3 pg (28.0-32.0); MEAN CORPUSCULAR VOLUME 90.4 fL (81.0-99.0); MEAN PLATELET VOLUME 9.5 fl (7.4-10.4); MONOCYTES % 5.1 % (2.0-8.0); NEUTROPHILS % 67.5 % (40.0-76.0); PLATELET 346 x1000/uL (130-400); RED BLOOD CELL COUNT 4.01 mill/uL (4.2-5.4); RED CELL DISTRIBUTION WIDTH 13.3 % (11.6-14.6)
[2021-05-03 08:00] VITALS: BP 119/68
[2021-05-03] MEDS: INSULIN LISPRO 100 UNITS/ML SUBCUT SCH ×5 (09:41→21:00)
[2021-05-03] MEDS: METOPROLOL TARTRATE 25MG TABLET PO SCH ×2 (09:42→21:55)
[2021-05-03] MEDS: AMIODARONE HCL 200 MG TABLET PO SCH (09:42)
[2021-05-03 12:00] VITALS: BP 114/72
[2021-05-03 16:00] VITALS: BP 113/56
[2021-05-03 20:00] VITALS: BP 135/76
[2021-05-03] MEDS: VANCOMYCIN 1250MG in DEXTROSE 5% WATER 250ML IV SCH (21:55)
[2021-05-03] MEDS: INSULIN GLARGINE UD 100 UNITS/ML SYR SUBCUT SCH (21:56)
[2021-05-04] MEDS: PIPERACILLIN/TAZOBACTAM 3.375G in DEXT 5% WATER 50ML IV SCH ×4 (00:37→22:28)
[2021-05-04] MEDS: ENOXAPARIN 100MG/ML SYR SUBCUT SCH (03:30)
[2021-05-04 04:00] VITALS: BP 123/58
[2021-05-04] MEDS: HYDROCODONE/ACETAMINOPHEN 10/325MG TABLET PO PRN ×4 (04:30→21:38)
[2021-05-04 06:00] LABS: CHLORIDE 106 mEq/L (98-107)
[2021-05-04] MEDS: SODIUM CHLORIDE 0.9% INJ 3ML FLUSH IVF SCH ×3 (06:20→22:27)
[2021-05-04] MEDS: INSULIN LISPRO 100 UNITS/ML SUBCUT SCH ×4 (06:55→21:00)
[2021-05-04] MEDS: BLOOD SUGAR DIAGNOSTIC STRIP TEST SCH ×4 (06:59→21:38)
[2021-05-04 08:21] VITALS: BP 110/64
[2021-05-04] MEDS: AMIODARONE HCL 200 MG TABLET PO SCH (08:49)
[2021-05-04] MEDS: METOPROLOL TARTRATE 25MG TABLET PO SCH ×2 (08:49→21:37)
[2021-05-04 12:11] VITALS: BP 98/60
[2021-05-04 16:13] VITALS: BP 132/66
[2021-05-04] MEDS: ENOXAPARIN 120MG/0.8ML SYR SUBCUT SCH (16:44)
[2021-05-04 20:20] VITALS: BP 137/65
[2021-05-04] MEDS ORDERED: HYDRALAZINE 10 MG in SODIUM CHLORIDE 0.9% 49.5 ML IV PRN (21:00)
[2021-05-04] MEDS: INSULIN GLARGINE UD 100 UNITS/ML SYR SUBCUT SCH (21:39)
[2021-05-04] MEDS: VANCOMYCIN 1250MG in DEXTROSE 5% WATER 250ML IV SCH (22:28)
[2021-05-05] VITALS: BP 109/58
[2021-05-05 04:00] VITALS: BP 125/62
[2021-05-05] MEDS: PIPERACILLIN/TAZOBACTAM 3.375G in DEXT 5% WATER 50ML IV SCH ×2 (05:03→14:18)
[2021-05-05] MEDS: ENOXAPARIN 120MG/0.8ML SYR SUBCUT SCH ×2 (05:03→18:09)
[2021-05-05] MEDS: SODIUM CHLORIDE 0.9% INJ 3ML FLUSH IVF SCH ×3 (05:04→21:57)
[2021-05-05] MEDS: INSULIN LISPRO 100 UNITS/ML SUBCUT SCH ×4 (07:50→21:00)
[2021-05-05 08:00] VITALS: BP 133/89
[2021-05-05] MEDS: BLOOD SUGAR DIAGNOSTIC STRIP TEST SCH ×4 (08:15→21:57)
[2021-05-05] MEDS: METOPROLOL TARTRATE 25MG TABLET PO SCH ×2 (08:38→21:55)
[2021-05-05] MEDS: AMIODARONE HCL 200 MG TABLET PO SCH (08:38)
[2021-05-05 12:00] VITALS: BP 161/69
[2021-05-05] MEDS ORDERED: CEFTRIAXONE 1 G PREMIX 50 ML IV SCH (12:15)
[2021-05-05] MEDS: CEFTRIAXONE 1,000 MG in DEXTROSE 5% WATER 50 ML IV SCH (14:18)
[2021-05-05] MEDS: HYDROCODONE/ACETAMINOPHEN 10/325MG TABLET PO PRN (14:51)
[2021-05-05 16:00] VITALS: BP 134/84
[2021-05-05 16:18] LABS: BASOPHILS % 0.2 % (0.0-2.0); EOSINOPHILS % 3.1 % (0.0-5.0); HEMATOCRIT. 38.8 % (36.0-48.0); HEMOGLOBIN. 12.6 g/dL (12.0-16.0); LYMPHOCYTES % 21.4 % (20.0-50.0); MEAN CORPUSCULAR HEMOGLOBIN 29.3 pg (28.0-32.0); MEAN CORPUSCULAR VOLUME 90.3 fL (81.0-99.0); MEAN PLATELET VOLUME 8.7 fl (7.4-10.4); MONOCYTES % 5.5 % (2.0-8.0); NEUTROPHILS % 69.8 % (40.0-76.0); PLATELET 388 x1000/uL (130-400); RED CELL DISTRIBUTION WIDTH 13.4 % (11.6-14.6)
[2021-05-05 20:00] VITALS: BP 115/61
[2021-05-05] MEDS: INSULIN GLARGINE UD 100 UNITS/ML SYR SUBCUT SCH (22:00)
[2021-05-06] VITALS: BP 120/60
[2021-05-06 04:00] VITALS: BP 114/62
[2021-05-06] MEDS: SODIUM CHLORIDE 0.9% INJ 3ML FLUSH IVF SCH ×2 (06:01→13:25)
[2021-05-06] MEDS: ENOXAPARIN 120MG/0.8ML SYR SUBCUT SCH ×2 (06:02→17:22)
[2021-05-06] MEDS ORDERED: LIDOCAINE HCL 1% 20ML VIAL (Pyxis) INJ ONE (07:33)
[2021-05-06] MEDS: BLOOD SUGAR DIAGNOSTIC STRIP TEST SCH ×3 (07:41→16:38)
[2021-05-06] MEDS: INSULIN LISPRO 100 UNITS/ML SUBCUT SCH ×3 (07:41→16:50)
[2021-05-06 08:00] VITALS: BP 133/65
[2021-05-06] MEDS: AMIODARONE HCL 200 MG TABLET PO SCH (09:11)
[2021-05-06] MEDS: METOPROLOL TARTRATE 25MG TABLET PO SCH (09:11)
[2021-05-06] MEDS: HYDROCODONE/ACETAMINOPHEN 10/325MG TABLET PO PRN (10:05)
[2021-05-06] MEDS ORDERED: LIDOCAINE HCL 1% 20ML VIAL (Pyxis) INJ INFIL NR (11:00)
[2021-05-06 12:00] VITALS: BP 105/50
[2021-05-06] MEDS: CEFTRIAXONE 1,000 MG in DEXTROSE 5% WATER 50 ML IV SCH (13:42)
[2021-05-06 16:00] VITALS: BP 111/57
[2021-05-06 17:24] VITALS: BP 111/57
== END 2021-05-06 18:25 | disposition home health service (06) | DRG 572 ==
LOC: ER 19:00 → 6WST 05-02 00:34 → ENRESERV 05-02 03:11 → 6EST 05-04 20:13
PROVIDERS: ADMIT Internal Medicine; ATTEND Internal Medicine
PROC: 0JBR0ZZ Excision of Left Foot Subcutaneous Tissue and Fascia, Open Approach (ICD-10-PCS; principal; 2021-05-02)
PROC: 0HDNXZZ Extraction of Left Foot Skin, External Approach (ICD-10-PCS; 2021-05-02)
PROC: 0JBP0ZZ Excision of Left Lower Leg Subcutaneous Tissue and Fascia, Open Approach (ICD-10-PCS; 2021-05-06)
PROC: 02HV33Z Insertion of Infusion Device into Superior Vena Cava, Percutaneous Approach (ICD-10-PCS; 2021-05-06)
PROC: B548ZZA Ultrasonography of Superior Vena Cava, Guidance (ICD-10-PCS; 2021-05-06)
PROC: B5181ZA Fluoroscopy of Superior Vena Cava using Low Osmolar Contrast, Guidance (ICD-10-PCS; 2021-05-06)
DX: L03.116 Cellulitis of left lower limb (principal); E11.621 Type 2 diabetes mellitus with foot ulcer; L02.416 Cutaneous abscess of left lower limb; I48.0 Paroxysmal atrial fibrillation; E78.00 Pure hypercholesterolemia, unspecified; I10 Essential (primary) hypertension; L84 Corns and callosities; L97.529 Non-pressure chronic ulcer of other part of left foot with unspecified severity; E11.51 Type 2 diabetes mellitus with diabetic peripheral angiopathy without gangrene; E66.9 Obesity, unspecified; E78.5 Hyperlipidemia, unspecified; Z20.822 Contact with and (suspected) exposure to COVID-19; R26.89 Other abnormalities of gait and mobility; Z68.34 Body mass index [BMI] 34.0-34.9, adult; Z79.01 Long term (current) use of anticoagulants; Z79.4 Long term (current) use of insulin; Z79.899 Other long term (current) drug therapy
CPT/HCPCS: 36415; 36573; 71045; 73590; 73610; 73630; 80048; 80053; 80202; 81003; 82270; 82962; 83036; 83605; 83880; 84484; 84550; 85025; 85651; 86140; 87070; 87075; 87077; 87426; 93923; 97116; 97162; 97530; 99285; C1725; C1769; J0696; J1650; J1815; J2270; J2543; J3370; J3490; J7040; J7060